=== PATIENT | female | born 1935 | race Caucasian/White ===

== ENCOUNTER 2025-02-12 02:21 | Inpatient (IN) | payer MEDICARE ==
[2025-02-12 02:40] LABS: #Basophils 0.05 10x3/uL (0.0-0.2); #Eosinophils 0.23 10x3/uL (0.0-0.7); #Monocytes 1.11 10x3/uL (0.11-0.59); #Neutrophils 14.96 10x3/uL (1.40-6.50); %Basophils 0.3 % (0.0-1.0); %Eosinophils 1.3 % (0.0-10.0); %Lymphocytes 8.5 % (21.0-51.0); %Monocytes 6.2 % (0.0-10.0); %Neutrophils 83.3 % (42.0-75.0); Hematocrit 39.1 % (36.0-47.0); Hemoglobin 12.7 g/dL (12.0-16.0); Mean Corpuscular Hemoglobin 31.1 pg (27.0-31.0); Mean Corpuscular Volume 95.6 fL (78.0-98.0); Platelet Count 257 10x3/uL (130-400); Red Blood Cell (RBC) Count 4.09 mill/uL (4.20-5.40); White Blood Cell (WBC) Count 17.95 10x3/uL (4.8-10.8)
[2025-02-12 03:08] LABS: ALT (SGPT) 19 U/L (Less than 34); AST (SGOT) 26 U/L (11-34); Albumin 4.0 g/dL (3.1-4.5); Alkaline Phosphatase 90 U/L (40-110); Anion Gap 17 mmol/L (10-20); BUN (Urea Nitrogen) 52 mg/dL (9.8-20.1); Bilirubin, Total 0.5 mg/dL (0.3-1.2); Calc. Creatinine Clearance 0 mL/min (70-130); Calcium 9.9 mg/dL (7.8-10.44); Carbon Dioxide 21 mmol/L (23-31); Chloride 102 mmol/L (98-107); Globulin 3.5 g/dL (2.4-3.5); Glucose 117 mg/dL (83-110); Lipase 37 U/L (8-78); Potassium 4.3 mmol/L (3.5-5.1); Sodium 136 mmol/L (136-145)
[2025-02-12] MEDS ORDERED: Pantoprazole 40 MG VIAL ONE (03:10)
[2025-02-12 07:36] LABS: ALT (SGPT) 19 U/L (Less than 34); AST (SGOT) 29 U/L (11-34); Albumin 4.0 g/dL (3.1-4.5); Alkaline Phosphatase 87 U/L (40-110); Anion Gap 19 mmol/L (10-20); BUN (Urea Nitrogen) 51 mg/dL (9.8-20.1); Bilirubin, Total 0.5 mg/dL (0.3-1.2); Calc. Creatinine Clearance 0 mL/min (70-130); Calcium 9.9 mg/dL (7.8-10.44); Carbon Dioxide 20 mmol/L (23-31); Chloride 102 mmol/L (98-107); Globulin 3.5 g/dL (2.4-3.5); Glucose 109 mg/dL (83-110); Potassium 4.2 mmol/L (3.5-5.1); Sodium 137 mmol/L (136-145)
[2025-02-12 07:53] LABS: INR-International Normal Ratio 1.2; PTT 29.7 sec (22.9-36.1); Prothrombin Time 15.0 sec (12.0-14.7)
[2025-02-12] MEDS ORDERED: Ondansetron PF 4 MG/2 ML Vial IVP PRN (11:23)
[2025-02-12] MEDS ORDERED: Acetaminophen 500 MG TAB PO PRN (11:23)
[2025-02-12 12:11] LABS: Hematocrit 32.8 % (36.0-47.0); Hemoglobin 10.6 g/dL (12.0-16.0)
[2025-02-12 12:32] LABS: Anion Gap 13 mmol/L (10-20); BUN (Urea Nitrogen) 40 mg/dL (9.8-20.1); Calc. Creatinine Clearance 36 mL/min (70-130); Calcium 8.5 mg/dL (7.8-10.44); Carbon Dioxide 18 mmol/L (23-31); Chloride 113 mmol/L (98-107); Glucose 105 mg/dL (83-110); Potassium 4.5 mmol/L (3.5-5.1); Sodium 139 mmol/L (136-145)
[2025-02-12] MEDS ORDERED: Iopamidol 370 76% 100 ML VIAL ONE (13:02)
[2025-02-12] MEDS: Pantoprazole 40 MG DR.TAB PO SCH (14:08)
[2025-02-12] MEDS ORDERED: Rocuronium Bromide 10 MG/ML (10ML VIAL) IVP SCH (22:15)
[2025-02-12] MEDS ORDERED: Etomidate 40 MG (20 mL) VIAL IVP SCH (22:15)
[2025-02-12] MEDS: Amiodarone 150 MG, Admixture Fee 1 EACH in Dextrose 5% in Water 100 ML IVPB SCH (22:20)
[2025-02-12 22:21] LABS: ALT (SGPT) 18 U/L (Less than 34); AST (SGOT) 33 U/L (11-34); Albumin 4.2 g/dL (3.1-4.5); Alkaline Phosphatase 96 U/L (40-110); Anion Gap 19 mmol/L (10-20); BUN (Urea Nitrogen) 27 mg/dL (9.8-20.1); Bilirubin, Total 0.7 mg/dL (0.3-1.2); Calc. Creatinine Clearance 34 mL/min (70-130); Calcium 9.4 mg/dL (7.8-10.44); Carbon Dioxide 12 mmol/L (23-31); Chloride 112 mmol/L (98-107); Globulin 3.8 g/dL (2.4-3.5); Glucose 143 mg/dL (83-110); Potassium 4.2 mmol/L (3.5-5.1); Sodium 139 mmol/L (136-145)
[2025-02-12] MEDS ORDERED: DISCONTINUE PREVIOUS NARCOTIC PAIN MEDICATIONS AND BENZODIAZEPINES FS SCH (22:30)
[2025-02-12] MEDS ORDERED: Fentanyl BOLUS 100 ML IVPB PRN (22:30)
[2025-02-12] MEDS ORDERED: Propofol BOLUS 1,000 MG/100 ML VIAL IV PRN (22:30)
[2025-02-12 22:39] LABS: #Basophils 0.07 10x3/uL (0.0-0.2); #Eosinophils 0.23 10x3/uL (0.0-0.7); #Monocytes 1.40 10x3/uL (0.11-0.59); #Neutrophils 10.97 10x3/uL (1.40-6.50); %Basophils 0.4 % (0.0-1.0); %Eosinophils 1.2 % (0.0-10.0); %Lymphocytes 31.4 % (21.0-51.0); %Monocytes 7.5 % (0.0-10.0); %Neutrophils 58.8 % (42.0-75.0); Hematocrit 41.9 % (36.0-47.0); Hemoglobin 12.9 g/dL (12.0-16.0); Mean Corpuscular Hemoglobin 30.7 pg (27.0-31.0); Mean Corpuscular Volume 99.8 fL (78.0-98.0); Platelet Count 291 10x3/uL (130-400); Red Blood Cell (RBC) Count 4.20 mill/uL (4.20-5.40); White Blood Cell (WBC) Count 18.66 10x3/uL (4.8-10.8)
[2025-02-12] MEDS ORDERED: Dextrose 5% in Water 250 ML BAG (BBRAUN) ONE (22:40)
[2025-02-12 22:50] LABS: Magnesium 2.2 mg/dL (1.6-2.6)
[2025-02-12] MEDS: Furosemide 40 MG (4 mL) VIAL SLOW IVP SCH (22:54)
[2025-02-12] MEDS: Furosemide 40 MG (4 mL) VIAL ONE (22:54)
[2025-02-12] MEDS: Ventilator Sedation Protocol 1 EACH FS ONE (22:54)
[2025-02-12 22:55] LABS: Actual Bicarbonate (HCO3a) 15.1 mEq/L (22-28); Base Excess (BEa) -12.6 mEq/L (-2.0 to +3.0); CO2 Tension 41.0 mmHg (35.0-45.0); Calcium, Ionized (arterial) 1.27 mmol/L (1.12-1.30); Hematocrit-ABG 43 % (36.0-47.0); Hemoglobin (Hb) 14.5 g/dL (12.0-16.0); O2 Tension (PaO2), arterial 84.9 mmHg (> 60.0); Potassium - ABG Lab 3.55 mmol/L (3.70-5.30)
[2025-02-12 22:56] LABS: ALV-art Gradient 576.850 mmHg (0-20); Puncture Site Left Radial artery; pH, Arterial 7.185 (7.35-7.45)
[2025-02-12] MEDS: Pantoprazole 40 MG VIAL IVP SCH (23:56)
[2025-02-12] MEDS: Sodium Bicarb 50 MEQ/50 ML Abboject 8.4% SYRINGE IVP SCH (23:57)
[2025-02-13] MEDS ORDERED: NOREPINEPHRINE 8 MG/250 ML-D5W 250 ML IVPB SCH (01:30)
[2025-02-13 02:59] VITALS: BMI 18.1
[2025-02-13 03:40] LABS: #Basophils 0.04 10x3/uL (0.0-0.2); #Eosinophils Less than 0.03 10x3/uL (0.0-0.7); #Monocytes 0.45 10x3/uL (0.11-0.59); #Neutrophils 18.09 10x3/uL (1.40-6.50); %Basophils 0.2 % (0.0-1.0); %Eosinophils 0.1 % (0.0-10.0); %Lymphocytes 5.5 % (21.0-51.0); %Monocytes 2.3 % (0.0-10.0); %Neutrophils 91.5 % (42.0-75.0); Hematocrit 38.7 % (36.0-47.0); Hemoglobin 12.3 g/dL (12.0-16.0); Mean Corpuscular Hemoglobin 30.5 pg (27.0-31.0); Mean Corpuscular Volume 96.0 fL (78.0-98.0); Platelet Count 234 10x3/uL (130-400); Red Blood Cell (RBC) Count 4.03 mill/uL (4.20-5.40); White Blood Cell (WBC) Count 19.76 10x3/uL (4.8-10.8)
[2025-02-13 04:01] LABS: Anion Gap 17 mmol/L (10-20); BUN (Urea Nitrogen) 29 mg/dL (9.8-20.1); Calc. Creatinine Clearance 32 mL/min (70-130); Calcium 8.4 mg/dL (7.8-10.44); Carbon Dioxide 17 mmol/L (23-31); Chloride 112 mmol/L (98-107); Glucose 167 mg/dL (83-110); Potassium 3.5 mmol/L (3.5-5.1); Sodium 142 mmol/L (136-145)
[2025-02-13 04:04] LABS: ALT (SGPT) 19 U/L (Less than 34); AST (SGOT) 38 U/L (11-34); Albumin 3.0 g/dL (3.1-4.5); Alkaline Phosphatase 75 U/L (40-110); Bilirubin, Direct 0.2 mg/dL (0.1-0.3); Bilirubin, Total 0.6 mg/dL (0.3-1.2); Magnesium 1.7 mg/dL (1.6-2.6)
[2025-02-13 04:08] LABS: INR-International Normal Ratio 1.2; Prothrombin Time 14.9 sec (12.0-14.7)
[2025-02-13] MEDS: Potassium Chloride 20 MEQ in Premix 1 BAG IVPB SCH (05:24)
[2025-02-13] MEDS ORDERED: Potassium Chloride 40 MEQ in Premix 1 BAG IVPB SCH (06:30)
[2025-02-13] MEDS ORDERED: Magnesium 2 GM/50 ML(in water) 2 GM in Premix 1 BAG IVPB SCH (06:30)
[2025-02-13] MEDS: Magnesium 2 GM/50 ML(in water) 2 GM in Premix 1 BAG IVPB SCH (06:40)
[2025-02-13] MEDS: Electrolyte Replacement Protocol 1 EACH FS ONE (07:35)
[2025-02-13 08:22] LABS: Actual Bicarbonate (HCO3a) 19.7 mEq/L (22-28); Base Excess (BEa) -3.8 mEq/L (-2.0 to +3.0); CO2 Tension 31.4 mmHg (35.0-45.0); Calcium, Ionized (arterial) 1.17 mmol/L (1.12-1.30); Hematocrit-ABG 38 % (36.0-47.0); Hemoglobin (Hb) 12.9 g/dL (12.0-16.0); O2 Tension (PaO2), arterial 86.3 mmHg (> 60.0); Potassium - ABG Lab 4.04 mmol/L (3.70-5.30); pH, Arterial 7.416 (7.35-7.45)
[2025-02-13 08:25] LABS: ALV-art Gradient 373.550 mmHg (0-20); Puncture Site Right Radial artery
[2025-02-13] MEDS ORDERED: Pantoprazole 40 MG DR.TAB PO SCH (09:00)
[2025-02-13] MEDS: Pantoprazole 40 MG VIAL IVP SCH (09:19)
[2025-02-13] MEDS: Furosemide 40 MG (4 mL) VIAL SLOW IVP SCH (09:19)
[2025-02-13] MEDS: Mupirocin 1 GM TUBE NASAL DECOLONIZATION NASAL SCH (09:20)
[2025-02-13] MEDS: diphenhydrAMINE 50 MG/ML VIAL IVP PRN (09:22)
[2025-02-13] MEDS: Midazolam In 0.9 % NaCl/PF 100 ML IV SCH (10:26)
[2025-02-13 15:31] VITALS: BMI 18.1
[2025-02-13 16:47] LABS: Potassium 4.8 mmol/L (3.5-5.1)
[2025-02-14 04:24] LABS: #Basophils 0.03 10x3/uL (0.0-0.2); #Eosinophils Less than 0.03 10x3/uL (0.0-0.7); #Monocytes 1.03 10x3/uL (0.11-0.59); #Neutrophils 14.86 10x3/uL (1.40-6.50); %Basophils 0.2 % (0.0-1.0); %Eosinophils 0.1 % (0.0-10.0); %Lymphocytes 6.6 % (21.0-51.0); %Monocytes 6.0 % (0.0-10.0); %Neutrophils 86.5 % (42.0-75.0); Hematocrit 31.0 % (36.0-47.0); Hemoglobin 10.1 g/dL (12.0-16.0); Mean Corpuscular Hemoglobin 30.8 pg (27.0-31.0); Mean Corpuscular Volume 94.5 fL (78.0-98.0); Platelet Count 181 10x3/uL (130-400); Red Blood Cell (RBC) Count 3.28 mill/uL (4.20-5.40); White Blood Cell (WBC) Count 17.17 10x3/uL (4.8-10.8)
[2025-02-14 05:00] LABS: ALT (SGPT) 21 U/L (Less than 34); AST (SGOT) 28 U/L (11-34); Albumin 2.6 g/dL (3.1-4.5); Alkaline Phosphatase 66 U/L (40-110); Anion Gap 14 mmol/L (10-20); BUN (Urea Nitrogen) 32 mg/dL (9.8-20.1); Bilirubin, Total 0.9 mg/dL (0.3-1.2); Calc. Creatinine Clearance 29 mL/min (70-130); Calcium 8.4 mg/dL (7.8-10.44); Carbon Dioxide 18 mmol/L (23-31); Chloride 110 mmol/L (98-107); Globulin 2.9 g/dL (2.4-3.5); Glucose 136 mg/dL (83-110); Magnesium 2.4 mg/dL (1.6-2.6); Potassium 4.0 mmol/L (3.5-5.1); Sodium 138 mmol/L (136-145)
[2025-02-14 08:10] LABS: Actual Bicarbonate (HCO3a) 17.9 mEq/L (22-28); Base Excess (BEa) -4.1 mEq/L (-2.0 to +3.0); Calcium, Ionized (arterial) 1.20 mmol/L (1.12-1.30); Hematocrit-ABG 34 % (36.0-47.0); Hemoglobin (Hb) 11.4 g/dL (12.0-16.0); O2 Tension (PaO2), arterial 111.7 mmHg (> 60.0); Potassium - ABG Lab 3.97 mmol/L (3.70-5.30); pH, Arterial 7.484 (7.35-7.45)
[2025-02-14 08:14] LABS: CO2 Tension 24.3 mmHg (35.0-45.0)
[2025-02-14 08:15] LABS: ALV-art Gradient 143.125 mmHg (0-20); Puncture Site Left Brachial artery
[2025-02-14] MEDS: DC Sedation Protocol FS ONE (11:49)
[2025-02-14] MEDS: Sodium Bicarb 50 MEQ/50 ML Abboject 8.4% SYRINGE ONE (19:04)
[2025-02-15 06:18] LABS: #Basophils 0.06 10x3/uL (0.0-0.2); #Eosinophils 0.12 10x3/uL (0.0-0.7); #Monocytes 0.73 10x3/uL (0.11-0.59); #Neutrophils 16.96 10x3/uL (1.40-6.50); %Basophils 0.3 % (0.0-1.0); %Eosinophils 0.6 % (0.0-10.0); %Lymphocytes 6.2 % (21.0-51.0); %Monocytes 3.8 % (0.0-10.0); %Neutrophils 88.3 % (42.0-75.0); Hematocrit 34.8 % (36.0-47.0); Hemoglobin 11.3 g/dL (12.0-16.0); Mean Corpuscular Hemoglobin 30.7 pg (27.0-31.0); Mean Corpuscular Volume 94.6 fL (78.0-98.0); Platelet Count 195 10x3/uL (130-400); Red Blood Cell (RBC) Count 3.68 mill/uL (4.20-5.40); White Blood Cell (WBC) Count 19.21 10x3/uL (4.8-10.8)
[2025-02-15 06:34] LABS: ALT (SGPT) 18 U/L (Less than 34); AST (SGOT) 28 U/L (11-34); Albumin 3.1 g/dL (3.1-4.5); Alkaline Phosphatase 82 U/L (40-110); Anion Gap 19 mmol/L (10-20); BUN (Urea Nitrogen) 28 mg/dL (9.8-20.1); Bilirubin, Total 1.1 mg/dL (0.3-1.2); Calc. Creatinine Clearance 39 mL/min (70-130); Calcium 9.4 mg/dL (7.8-10.44); Carbon Dioxide 22 mmol/L (23-31); Chloride 107 mmol/L (98-107); Globulin 3.6 g/dL (2.4-3.5); Glucose 106 mg/dL (83-110); Magnesium 2.3 mg/dL (1.6-2.6); Potassium 3.5 mmol/L (3.5-5.1); Sodium 144 mmol/L (136-145)
[2025-02-15] MEDS ORDERED: Non-Formulary Item 1 EACH (Baclofen [Baclofen] 5 MG Tablet) PO PRN (08:26)
[2025-02-15] MEDS ORDERED: Baclofen 10 MG TAB PO PRN (08:31)
[2025-02-15] MEDS ORDERED: Non-Formulary Item 1 EACH (Levothyroxine Sodium [Levothyroxine Sodium] 75 MCG Capsule) PO SCH (09:00)
[2025-02-15] MEDS ORDERED: COLESEVELAM HCL 625 MG PO SCH ×2 (09:00)
[2025-02-15] MEDS: Potassium Chloride 20 MEQ in Premix 1 BAG IVPB SCH (10:30)
[2025-02-15] MEDS: Sertraline 100 MG TAB PO SCH (10:30)
[2025-02-15] MEDS: Metoprolol Succinate XL 25 MG ER.TAB PO SCH (10:31)
[2025-02-15] MEDS: Gabapentin 100 MG CAP PO SCH (10:31)
[2025-02-15] MEDS: Torsemide 20 MG TAB PO SCH (10:32)
[2025-02-15] MEDS: Aspirin Chewable 81 MG TAB PO SCH (10:33)
[2025-02-15] MEDS: Famotidine 20 MG TAB PO SCH (21:00)
[2025-02-15] MEDS: clonazePAM 0.5 MG TAB PO SCH (21:01)
[2025-02-16 05:26] LABS: Anion Gap 13 mmol/L (10-20); BUN (Urea Nitrogen) 37 mg/dL (9.8-20.1); Calc. Creatinine Clearance 35 mL/min (70-130); Calcium 9.0 mg/dL (7.8-10.44); Carbon Dioxide 24 mmol/L (23-31); Chloride 104 mmol/L (98-107); Glucose 106 mg/dL (83-110); Potassium 3.0 mmol/L (3.5-5.1); Sodium 138 mmol/L (136-145)
[2025-02-16] MEDS ORDERED: ALOSETRON HCL 0.5 MG PO SCH ×2 (09:00)
[2025-02-16] MEDS: Torsemide 20 MG TAB PO SCH (11:35)
[2025-02-16] MEDS: Enoxaparin 40 MG (0.4 mL) SYRINGE SC SCH (11:37)
[2025-02-16] MEDS: Lisinopril 5 MG TAB PO SCH (11:37)
[2025-02-17 08:21] LABS: #Basophils 0.06 10x3/uL (0.0-0.2); #Eosinophils 0.16 10x3/uL (0.0-0.7); #Monocytes 1.06 10x3/uL (0.11-0.59); #Neutrophils 12.28 10x3/uL (1.40-6.50); %Basophils 0.4 % (0.0-1.0); %Eosinophils 1.0 % (0.0-10.0); %Lymphocytes 11.3 % (21.0-51.0); %Monocytes 6.9 % (0.0-10.0); %Neutrophils 79.4 % (42.0-75.0); Hematocrit 36.5 % (36.0-47.0); Hemoglobin 11.9 g/dL (12.0-16.0); Mean Corpuscular Hemoglobin 31.1 pg (27.0-31.0); Mean Corpuscular Volume 95.3 fL (78.0-98.0); Platelet Count 233 10x3/uL (130-400); Red Blood Cell (RBC) Count 3.83 mill/uL (4.20-5.40); White Blood Cell (WBC) Count 15.46 10x3/uL (4.8-10.8)
[2025-02-17 08:40] LABS: Anion Gap 14 mmol/L (10-20); BUN (Urea Nitrogen) 39 mg/dL (9.8-20.1); Calc. Creatinine Clearance 31 mL/min (70-130); Calcium 9.1 mg/dL (7.8-10.44); Carbon Dioxide 25 mmol/L (23-31); Chloride 106 mmol/L (98-107); Glucose 103 mg/dL (83-110); Potassium 3.3 mmol/L (3.5-5.1); Sodium 142 mmol/L (136-145)
[2025-02-17] MEDS: Metamucil PACK PO SCH (13:21)
[2025-02-17 23:33] VITALS: BP 129/61; TEMP 98.2
[2025-02-18] MEDS ORDERED: Metamucil PACK PO SCH (09:00)
== END 2025-02-17 20:22 | DRG 208 ==
LOC: ERS 02:21 → ERHOLD 05:36 → 2SE 09:38 → CCU 21:48 → OBSVTOIN 02-13 00:26 → 2NO 02-15 07:15
PROVIDERS: ADMIT Internal Medicine; ATTEND Student in an Organized Health Care Education/Training Program
PROC: 5A1945Z Respiratory Ventilation, 24-96 Consecutive Hours (ICD-10-PCS; 2025-02-12)
PROC: 0BH17EZ Insertion of Endotracheal Airway into Trachea, Via Natural or Artificial Opening (ICD-10-PCS; 2025-02-12)
PROC: 4A133R1 Monitoring of Arterial Saturation, Peripheral, Percutaneous Approach (ICD-10-PCS; 2025-02-12)
PROC: 0T9B70Z Drainage of Bladder with Drainage Device, Via Natural or Artificial Opening (ICD-10-PCS; principal; 2025-02-13)
PROC: 3E033XZ Introduction of Vasopressor into Peripheral Vein, Percutaneous Approach (ICD-10-PCS; 2025-02-13)
PROC: 05HY33Z Insertion of Infusion Device into Upper Vein, Percutaneous Approach (ICD-10-PCS; 2025-02-13)
DX: J81.0 Acute pulmonary edema (principal); I21.4 Non-ST elevation (NSTEMI) myocardial infarction; J96.01 Acute respiratory failure with hypoxia; K92.0 Hematemesis; I47.29 Other ventricular tachycardia; E87.20 Acidosis, unspecified; I13.0 Hypertensive heart and chronic kidney disease with heart failure and stage 1 through stage 4 chronic kidney disease, or unspecified chronic kidney disease; N13.30 Unspecified hydronephrosis; I35.0 Nonrheumatic aortic (valve) stenosis; I50.9 Heart failure, unspecified; E03.9 Hypothyroidism, unspecified; E78.5 Hyperlipidemia, unspecified; N18.30 Chronic kidney disease, stage 3 unspecified; I95.9 Hypotension, unspecified; D72.829 Elevated white blood cell count, unspecified; Z79.899 Other long term (current) drug therapy; E87.5 Hyperkalemia; Z79.82 Long term (current) use of aspirin; Z90.49 Acquired absence of other specified parts of digestive tract; Z90.710 Acquired absence of both cervix and uterus; K52.9 Noninfective gastroenteritis and colitis, unspecified; Z79.890 Hormone replacement therapy; F03.90 Unspecified dementia, unspecified severity, without behavioral disturbance, psychotic disturbance, mood disturbance, and anxiety; E87.8 Other disorders of electrolyte and fluid balance, not elsewhere classified; R33.9 Retention of urine, unspecified
CPT/HCPCS: 36415; 36416; 36600; 51702; 71045; 74177; 80048; 80053; 80076; 82805; 83605; 83690; 83735; 83880; 84484; 85025; 85610; 85730; 86850; 86900; 86901; 93005; 93010; 93306; 94002; 94003; 96361; 96374; 96375; 96376; G0378; J0282; J1200; J1650; J1940; J2250; J2470; J3475; J3480; J7030; J7070; Q0162; Q9967

== ENCOUNTER 2025-02-27 14:58 | Inpatient (IN) | payer MEDICARE ==
[2025-02-27 15:25] LABS: #Basophils 0.06 10x3/uL (0.0-0.2); #Eosinophils 0.15 10x3/uL (0.0-0.7); #Monocytes 1.15 10x3/uL (0.11-0.59); #Neutrophils 18.89 10x3/uL (1.40-6.50); %Basophils 0.3 % (0.0-1.0); %Eosinophils 0.7 % (0.0-10.0); %Lymphocytes 6.8 % (21.0-51.0); %Monocytes 5.3 % (0.0-10.0); %Neutrophils 86.2 % (42.0-75.0); Hematocrit 31.3 % (36.0-47.0); Hemoglobin 10.1 g/dL (12.0-16.0); Mean Corpuscular Hemoglobin 30.7 pg (27.0-31.0); Mean Corpuscular Volume 95.1 fL (78.0-98.0); Platelet Count 302 10x3/uL (130-400); Red Blood Cell (RBC) Count 3.29 mill/uL (4.20-5.40); White Blood Cell (WBC) Count 21.89 10x3/uL (4.8-10.8)
[2025-02-27 15:44] LABS: ALT (SGPT) 11 U/L (Less than 34); AST (SGOT) 19 U/L (11-34); Albumin 2.9 g/dL (3.1-4.5); Alkaline Phosphatase 80 U/L (40-110); Anion Gap 15 mmol/L (10-20); BUN (Urea Nitrogen) 49 mg/dL (9.8-20.1); Bilirubin, Total 0.4 mg/dL (0.3-1.2); Calc. Creatinine Clearance 0 mL/min (70-130); Calcium 8.1 mg/dL (7.8-10.44); Carbon Dioxide 15 mmol/L (23-31); Chloride 105 mmol/L (98-107); Globulin 2.9 g/dL (2.4-3.5); Glucose 117 mg/dL (83-110); Potassium 3.6 mmol/L (3.5-5.1); Sodium 131 mmol/L (136-145)
[2025-02-27 15:58] LABS: INR-International Normal Ratio 1.2; Prothrombin Time 15.5 sec (12.0-14.7)
[2025-02-27 15:59] LABS: PTT 28.9 sec (22.9-36.1)
[2025-02-27] MEDS ORDERED: Aspirin Chewable 81 MG TAB ONE (16:09)
[2025-02-27 16:49] LABS: Bacteria/HPF 3+ HPF (None Seen); CAUTI Indications for Culture Alt mental st,lethar; Glucose, Urine (Dipstick) Normal (Negative); Leukocyte 250 Leu/uL (Negative); Protein, Urine (Dipstick) Negative (Neg-Trace); RBC/HPF 0-3 HPF (0-3); Specific Gravity, Urine 1.010 (1.002-1.036)
[2025-02-27 16:54] LABS: Urine Culture Reflex Yes Yes
[2025-02-27] MEDS ORDERED: cefTRIAXone (ROCEPHIN) 2 GM VIAL ONE (16:55)
[2025-02-27] MEDS ORDERED: Acetaminophen 325 MG TAB PO PRN (20:05)
[2025-02-27] MEDS: Melatonin 3 MG TAB PO PRN (22:58)
[2025-02-27] MEDS: Heparin 5,000 UNITS/ML VIAL SC SCH (23:04)
[2025-02-28] MEDS ORDERED: Diclofenac 1% 50 GM TOPICAL GEL TP PRN (00:21)
[2025-02-28] MEDS: Metamucil PACK PO SCH ×2 (00:40→10:23)
[2025-02-28 04:47] LABS: #Basophils 0.05 10x3/uL (0.0-0.2); #Eosinophils 0.28 10x3/uL (0.0-0.7); #Monocytes 0.82 10x3/uL (0.11-0.59); #Neutrophils 13.65 10x3/uL (1.40-6.50); %Basophils 0.3 % (0.0-1.0); %Eosinophils 1.7 % (0.0-10.0); %Lymphocytes 10.9 % (21.0-51.0); %Monocytes 4.9 % (0.0-10.0); %Neutrophils 81.6 % (42.0-75.0); Hematocrit 31.1 % (36.0-47.0); Hemoglobin 9.7 g/dL (12.0-16.0); Mean Corpuscular Hemoglobin 30.2 pg (27.0-31.0); Mean Corpuscular Volume 96.9 fL (78.0-98.0); Platelet Count 266 10x3/uL (130-400); Red Blood Cell (RBC) Count 3.21 mill/uL (4.20-5.40); White Blood Cell (WBC) Count 16.73 10x3/uL (4.8-10.8)
[2025-02-28 05:05] LABS: ALT (SGPT) 10 U/L (Less than 34); AST (SGOT) 23 U/L (11-34); Albumin 2.6 g/dL (3.1-4.5); Alkaline Phosphatase 74 U/L (40-110); Anion Gap 14 mmol/L (10-20); BUN (Urea Nitrogen) 41 mg/dL (9.8-20.1); Bilirubin, Total 0.2 mg/dL (0.3-1.2); Calc. Creatinine Clearance 17 mL/min (70-130); Calcium 8.1 mg/dL (7.8-10.44); Carbon Dioxide 15 mmol/L (23-31); Chloride 107 mmol/L (98-107); Globulin 2.9 g/dL (2.4-3.5); Glucose 94 mg/dL (83-110); Potassium 3.8 mmol/L (3.5-5.1); Sodium 132 mmol/L (136-145)
[2025-02-28 05:28] LABS: Free T4 (Free Thyroxine) 0.92 ng/dL (0.70-1.48); Thyroid Stimulating Hormone 1.8623 uIU/mL (0.35-4.94)
[2025-02-28] MEDS: Baclofen 10 MG TAB PO PRN (06:29)
[2025-02-28] MEDS ORDERED: ALOSETRON HCL 0.5 MG PO SCH (09:00)
[2025-02-28] MEDS: Multivitamin W/ Minerals 1 TAB PO SCH (10:14)
[2025-02-28] MEDS: Gabapentin 100 MG CAP PO SCH (10:16)
[2025-02-28] MEDS: Aspirin Chewable 81 MG TAB PO SCH (10:17)
[2025-02-28] MEDS: Pantoprazole 40 MG DR.TAB PO SCH (10:18)
[2025-02-28] MEDS: Acetaminophen 325 MG TAB PO SCH (10:18)
[2025-02-28] MEDS: Sertraline 100 MG TAB PO SCH (10:19)
[2025-02-28] MEDS: Albumin 25% 25 GM (100 mL) BOT IVPB SCH ×2 (10:50→13:19)
[2025-02-28] MEDS: Magnesium Oxide 400 MG TAB PO SCH (10:55)
[2025-02-28] MEDS: Ipratropium Bromide 0.06% Nasal Inhaler 15ml EA NARE SCH (10:57)
[2025-02-28] MEDS: Metoprolol Tartrate 5 MG (5 mL) VIAL ONE (15:31)
[2025-02-28] MEDS: Furosemide 20 MG (2 mL) VIAL SLOW IVP SCH (17:11)
[2025-02-28] MEDS: cefTRIAXone\\ROCEPHIN 1 GM in Sodium Chloride 0.9% 100 ML IVPB SCH (17:11)
[2025-02-28] MEDS: Melatonin 3 MG TAB PO SCH (21:33)
[2025-02-28] MEDS: Transdermal Patch Removal TOP SCH (21:35)
[2025-03-01 04:42] LABS: #Basophils 0.06 10x3/uL (0.0-0.2); #Eosinophils 0.37 10x3/uL (0.0-0.7); #Monocytes 0.82 10x3/uL (0.11-0.59); #Neutrophils 8.98 10x3/uL (1.40-6.50); %Basophils 0.5 % (0.0-1.0); %Eosinophils 2.9 % (0.0-10.0); %Lymphocytes 18.4 % (21.0-51.0); %Monocytes 6.5 % (0.0-10.0); %Neutrophils 71.1 % (42.0-75.0); Hematocrit 29.6 % (36.0-47.0); Hemoglobin 9.5 g/dL (12.0-16.0); Mean Corpuscular Hemoglobin 30.6 pg (27.0-31.0); Mean Corpuscular Volume 95.5 fL (78.0-98.0); Platelet Count 259 10x3/uL (130-400); Red Blood Cell (RBC) Count 3.10 mill/uL (4.20-5.40); White Blood Cell (WBC) Count 12.64 10x3/uL (4.8-10.8)
[2025-03-01 05:06] LABS: ALT (SGPT) 14 U/L (Less than 34); AST (SGOT) 35 U/L (11-34); Albumin 3.4 g/dL (3.1-4.5); Alkaline Phosphatase 73 U/L (40-110); Anion Gap 13 mmol/L (10-20); BUN (Urea Nitrogen) 41 mg/dL (9.8-20.1); Bilirubin, Total 0.2 mg/dL (0.3-1.2); Calc. Creatinine Clearance 23 mL/min (70-130); Calcium 8.6 mg/dL (7.8-10.44); Carbon Dioxide 16 mmol/L (23-31); Chloride 108 mmol/L (98-107); Globulin 2.8 g/dL (2.4-3.5); Glucose 96 mg/dL (83-110); Potassium 3.8 mmol/L (3.5-5.1); Sodium 133 mmol/L (136-145)
[2025-03-01] MEDS: Magnesium Oxide 400 MG TAB PO SCH (08:26)
[2025-03-01] MEDS: Furosemide 40 MG (4 mL) VIAL ONE (22:55)
[2025-03-01] MEDS: Furosemide 40 MG (4 mL) VIAL SLOW IVP SCH ×2 (22:58→22:59)
[2025-03-01] MEDS: Nitroglycerin 2% Ointment 1 INCH/1 GM Packet TOP SCH (22:59)
[2025-03-01 23:59] VITALS: BP 167/107
[2025-03-02 03:13] LABS: #Basophils 0.08 10x3/uL (0.0-0.2); #Eosinophils 0.06 10x3/uL (0.0-0.7); #Monocytes 0.93 10x3/uL (0.11-0.59); #Neutrophils 15.29 10x3/uL (1.40-6.50); %Basophils 0.4 % (0.0-1.0); %Eosinophils 0.3 % (0.0-10.0); %Lymphocytes 8.1 % (21.0-51.0); %Monocytes 5.2 % (0.0-10.0); %Neutrophils 85.2 % (42.0-75.0); Hematocrit 30.9 % (36.0-47.0); Hemoglobin 9.9 g/dL (12.0-16.0); Mean Corpuscular Hemoglobin 30.9 pg (27.0-31.0); Mean Corpuscular Volume 96.6 fL (78.0-98.0); Platelet Count 262 10x3/uL (130-400); Red Blood Cell (RBC) Count 3.20 mill/uL (4.20-5.40); White Blood Cell (WBC) Count 17.95 10x3/uL (4.8-10.8)
[2025-03-02 03:50] LABS: ALT (SGPT) 10 U/L (Less than 34); AST (SGOT) 26 U/L (11-34); Albumin 3.3 g/dL (3.1-4.5); Alkaline Phosphatase 85 U/L (40-110); Anion Gap 14 mmol/L (10-20); BUN (Urea Nitrogen) 32 mg/dL (9.8-20.1); Bilirubin, Total 0.2 mg/dL (0.3-1.2); Calc. Creatinine Clearance 27 mL/min (70-130); Calcium 8.6 mg/dL (7.8-10.44); Carbon Dioxide 18 mmol/L (23-31); Chloride 108 mmol/L (98-107); Globulin 2.8 g/dL (2.4-3.5); Glucose 122 mg/dL (83-110); Magnesium 1.7 mg/dL (1.6-2.6); Potassium 3.8 mmol/L (3.5-5.1); Sodium 136 mmol/L (136-145)
[2025-03-02 05:20] VITALS: BMI 18.6
[2025-03-02] MEDS: Furosemide 40 MG (4 mL) VIAL SLOW IVP SCH (05:54)
[2025-03-02] MEDS: Sodium Bicarbonate Tab 325 MG TAB PO SCH ×2 (16:05→20:25)
[2025-03-03 03:44] LABS: #Basophils 0.07 10x3/uL (0.0-0.2); #Eosinophils 0.22 10x3/uL (0.0-0.7); #Monocytes 0.78 10x3/uL (0.11-0.59); #Neutrophils 9.23 10x3/uL (1.40-6.50); %Basophils 0.6 % (0.0-1.0); %Eosinophils 1.8 % (0.0-10.0); %Lymphocytes 12.9 % (21.0-51.0); %Monocytes 6.5 % (0.0-10.0); %Neutrophils 77.5 % (42.0-75.0); Hematocrit 32.3 % (36.0-47.0); Hemoglobin 10.2 g/dL (12.0-16.0); Mean Corpuscular Hemoglobin 30.4 pg (27.0-31.0); Mean Corpuscular Volume 96.4 fL (78.0-98.0); Platelet Count 246 10x3/uL (130-400); Red Blood Cell (RBC) Count 3.35 mill/uL (4.20-5.40); White Blood Cell (WBC) Count 11.92 10x3/uL (4.8-10.8)
[2025-03-03 04:04] LABS: ALT (SGPT) 10 U/L (Less than 34); AST (SGOT) 21 U/L (11-34); Albumin 3.2 g/dL (3.1-4.5); Alkaline Phosphatase 78 U/L (40-110); Anion Gap 17 mmol/L (10-20); BUN (Urea Nitrogen) 29 mg/dL (9.8-20.1); Bilirubin, Total 0.3 mg/dL (0.3-1.2); Calc. Creatinine Clearance 32 mL/min (70-130); Calcium 9.0 mg/dL (7.8-10.44); Carbon Dioxide 19 mmol/L (23-31); Chloride 109 mmol/L (98-107); Globulin 3.0 g/dL (2.4-3.5); Glucose 118 mg/dL (83-110); Magnesium 1.8 mg/dL (1.6-2.6); Potassium 3.6 mmol/L (3.5-5.1); Sodium 141 mmol/L (136-145)
[2025-03-03] MEDS ORDERED: Communication Order-Pharmacy FS SCH (06:00)
[2025-03-03] MEDS ORDERED: hydrALAZINE 20 MG/ML VIAL SLOW IVP PRN (09:03)
[2025-03-03] MEDS: PHOS-NAK 1 PKT PACK PO SCH (09:51)
[2025-03-03] MEDS ORDERED: Iopamidol 370 76% 100 ML VIAL ONE (11:10)
[2025-03-03] MEDS ORDERED: Adenosine 6 mg (2 mL) VIAL ONE (12:11)
[2025-03-03] MEDS ORDERED: Nitroglycerin 50 MG/250 ML BOT 0 ML ONE (12:12)
[2025-03-03] MEDS ORDERED: Heparin 10,000 UNITS/ 10 ML VIAL ONE (12:12)
[2025-03-03] MEDS ORDERED: Lidocaine 1% (PF) 30 ML VIAL ONE (12:12)
[2025-03-03] MEDS: clonazePAM 0.5 MG TAB PO SCH (21:10)
[2025-03-04 01:30] VITALS: TEMP 97.8
[2025-03-04] MEDS ORDERED: Metamucil PACK PO SCH (09:00)
== END 2025-03-04 01:30 | disposition short-term general hospital (02) | DRG 871 ==
LOC: ERS 14:58 → 2NO 18:04 → IMCU/EMU 03-01 21:58
PROVIDERS: ADMIT Internal Medicine; ATTEND Hospitalist
PROC: 3E03329 Introduction of Other Anti-infective into Peripheral Vein, Percutaneous Approach (ICD-10-PCS; principal; 2025-02-27)
PROC: 30233N1 Transfusion of Nonautologous Red Blood Cells into Peripheral Vein, Percutaneous Approach (ICD-10-PCS; 2025-02-28)
PROC: 5A09357 Assistance with Respiratory Ventilation, Less than 24 Consecutive Hours, Continuous Positive Airway Pressure (ICD-10-PCS; 2025-03-01)
PROC: B2111ZZ Fluoroscopy of Multiple Coronary Arteries using Low Osmolar Contrast (ICD-10-PCS; 2025-03-03)
PROC: 4A023N7 Measurement of Cardiac Sampling and Pressure, Left Heart, Percutaneous Approach (ICD-10-PCS; 2025-03-03)
PROC: B2151ZZ Fluoroscopy of Left Heart using Low Osmolar Contrast (ICD-10-PCS; 2025-03-03)
PROC: B240ZZ3 Ultrasonography of Single Coronary Artery, Intravascular (ICD-10-PCS; 2025-03-03)
DX: A41.59 Other Gram-negative sepsis (principal); I21.A1 Myocardial infarction type 2; J96.01 Acute respiratory failure with hypoxia; I50.33 Acute on chronic diastolic (congestive) heart failure; I13.0 Hypertensive heart and chronic kidney disease with heart failure and stage 1 through stage 4 chronic kidney disease, or unspecified chronic kidney disease; N18.4 Chronic kidney disease, stage 4 (severe); N17.9 Acute kidney failure, unspecified; N30.00 Acute cystitis without hematuria; E87.1 Hypo-osmolality and hyponatremia; Z66 Do not resuscitate; F32.9 Major depressive disorder, single episode, unspecified; E78.5 Hyperlipidemia, unspecified; E03.9 Hypothyroidism, unspecified; F32.A Depression, unspecified; E86.0 Dehydration; E86.1 Hypovolemia; R82.71 Bacteriuria; I35.0 Nonrheumatic aortic (valve) stenosis; D63.1 Anemia in chronic kidney disease; I44.0 Atrioventricular block, first degree; I45.81 Long QT syndrome; S50.811A Abrasion of right forearm, initial encounter; W19.XXXA Unspecified fall, initial encounter; S00.03XA Contusion of scalp, initial encounter; K58.0 Irritable bowel syndrome with diarrhea; S50.812A Abrasion of left forearm, initial encounter; E07.9 Disorder of thyroid, unspecified; Z90.49 Acquired absence of other specified parts of digestive tract; Z98.890 Other specified postprocedural states; Z90.710 Acquired absence of both cervix and uterus; Z79.899 Other long term (current) drug therapy; Z79.82 Long term (current) use of aspirin; Z79.891 Long term (current) use of opiate analgesic; Z79.890 Hormone replacement therapy
CPT/HCPCS: 36415; 36416; 51701; 70450; 71045; 72125; 80053; 81001; 83605; 83735; 83880; 84100; 84439; 84443; 84481; 84484; 85025; 85347; 85610; 85730; 86850; 86900; 86901; 87040; 87077; 87086; 87186; 92978; 93005; 93010; 93306; 93458; 94660; 96361; 96365; 97139; C1753; C1769; C1887; J0153; J0696; J1644; J1940; J2250; J7030; J7120; P9047; Q9967